=== PATIENT | female | born 1970 | race American Indian/Alaskan Native ===

== ENCOUNTER 2016-08-18 14:43 | Inpatient (IN) | payer MEDICAID ==
--- NOTE | 2016-08-18 15:02 | CT ---
PROCEDURE: CT HEAD WITHOUT CONTRAST. HISTORY: r/o stroke COMPARISON: None available. TECHNIQUE: Axial computed tomography images were obtained through the head/brain without intravenous contrast. Radiation dose: Total exam DLP = mGy-cm. FINDINGS: HEMORRHAGE: No intracranial hemorrhage. BRAIN: No mass effect or edema. Chronic microvascular changes are seen in the periventricular white matter and basal ganglia. Moderate atrophy greater than expected for age. No acute infarct or hemorrhage VENTRICLES: Unremarkable. No hydrocephalus. CALVARIUM: Unremarkable. PARANASAL SINUSES: Unremarkable as visualized. No significant inflammatory changes. MASTOID AIR CELLS: Unremarkable as visualized. No inflammatory changes. OTHER FINDINGS: None. IMPRESSION: Chronic microvascular changes and atrophy greater than expected for patient's age. No acute intracranial findings
[2016-08-18 15:05] VITALS: BMI 18.4
--- NOTE | 2016-08-18 15:08 | RAD ---
PROCEDURE: CHEST RADIOGRAPH, 1 VIEW HISTORY: alt ms COMPARISON: 09/05/2015 FINDINGS: LUNGS: Clear. PLEURA: No pneumothorax or pleural fluid seen. CARDIOVASCULAR: Normal. OSSEOUS STRUCTURES: No significant abnormalities. VISUALIZED UPPER ABDOMEN: Normal. OTHER FINDINGS: None. IMPRESSION: No active disease.
[2016-08-18 16:05] LABS: ADD MANUAL DIFF? NO
[2016-08-18 16:10] LABS: VENOUS BLOOD GAS BASE EXCESS 1.2 mmol/L (0.0-2.0); VENOUS BLOOD PH 7.41 (7.32-7.43)
[2016-08-18 16:13] LABS: BASO # 0.02 K/mm3 (0.0-2.0); BASO % 0.2 % (0.0-3.0); EOS # 0.1 (0.0-0.7); EOS % 0.9 % (1.5-5.0); GRAN # 4.48 (1.4-6.5); GRAN % 47.7 % (50.0-68.0); HEMATOCRIT 34.5 % (36.0-48.0); LYMPH # 4.1 (1.2-3.4); LYMPH % 43.7 % (22.0-35.0); MEAN CELL VOLUME 76.3 fL (80.0-105.0); MEAN CORPUSCULAR HEMOGLOBIN 25.4 pg (25.0-35.0); MEAN CORPUSCULAR HGB CONC 33.3 g/dl (31.0-37.0); MEAN PLATELET VOLUME 11.2 fl (7.0-11.0); MONO # 0.7 (0.1-0.6); MONO % 7.5 % (1.0-6.0); PLATELET COUNT 265 10^3/uL (120.0-450.0); RED CELL DISTRIBUTION WIDTH 15.3 % (11.5-14.5); WHITE BLOOD COUNT 9.4 10^3/ul (4.5-11.0)
[2016-08-18] MEDS ORDERED: Sodium Chloride 0.9% 1,000 ML IV STA ×2 (16:19→21:09)
[2016-08-18 16:20] LABS: ALB/GLOB RATIO 0.8 (1.1-1.8); ALKALINE PHOSPHATASE 59 U/L (38-133); ALT/SGPT 17 U/L (7-56); AST/SGOT 27 U/L (15-39); BILIRUBIN,TOTAL 0.4 mg/dL (0.2-1.3); BLOOD UREA NITROGEN 13 mg/dL (7-21); CALCIUM 9.8 mg/dL (8.4-10.5); CARBON DIOXIDE 26 mmol/L (21-33); CHLORIDE 102 mmol/L (98-107); CHOLESTEROL 160 mg/dL (130-200); GFR AFRICAN-AMERICAN > 60; GLUCOSE,RANDOM 81 mg/dL (70-110); INR 1.04 (0.93-1.08); LIPASE 83 U/L (23-300); MAGNESIUM 2.1 mg/dL (1.7-2.2); POTASSIUM 4.1 mmol/L (3.6-5.0); SODIUM 138 mmol/L (132-148); TOTAL PROTEIN 8.9 g/dL (5.8-8.3)
[2016-08-18 16:35] LABS: TROPONIN I < 0.01 ng/mL
[2016-08-18 17:29] LABS: URINE BILIRUBIN NEGATIVE (NEGATIVE); URINE BLOOD NEGATIVE (NEGATIVE); URINE GLUCOSE (UA) NEGATIVE (NEGATIVE); URINE KETONE NEGATIVE (NEGATIVE); URINE LEUKOCYTE ESTERASE NEGATIVE Leu/uL (NEGATIVE); URINE PROTEIN NEGATIVE mg/dL (<30 mg/dL); URINE UROBILINOGEN 0.2 E.U./dL (<1 E.U./dL)
[2016-08-18 17:32] LABS: URINE APPEARANCE CLEAR (CLEAR); URINE COLOR YELLOW (YELLOW)
[2016-08-18] MEDS ORDERED: Cefepime IV 2 gm in NS 100 ML IVPB STA (17:34)
[2016-08-18 18:38] LABS: URINE RBC 0 - 2 /hpf (0-2)
[2016-08-18 18:39] LABS: URINE AMORPHOUS SEDIMENT FEW; URINE BACTERIA MANY (NEG)
[2016-08-18] MEDS ORDERED: levETIRAcetam 500mg IVPB 100 ML IVPB STA (20:20)
--- NOTE | 2016-08-18 20:26 | ED PDOC ---
Arrival/HPI - General Chief Complaint: Weakness/Neurological Deficit Time Seen by Provider: 08/18/16 14:44 Historian: Patient - History of Present Illness Narrative History of Present Illness (Text): 08/18/16 20:22 46 y.o. female whose PMHx includes COPD, seizure d/o, multiple sclerosis, and CVA who is sent from [facility] according to EMS, the patient was somnolent and mildly lethargic in the morning but still verbal. There was no obvious neuro changes noted when she was last seen at 12:30 pm. At 1 pm, she was noted to be nonverbal with R side weakness. Per EMS, the patient appeared to be weak on her R side and aphasic initially though during transport she started becoming slightly more verbal. Patient on presentation is not speaking , so unable to discern additional history. Past Medical History - Infectious Disease Hx of Infectious Diseases: None - Tetanus Immunization Tetanus Immunization: Up to Date - Cardiac Hx Cardiac Disorders: No - Pulmonary Hx Asthma: Yes - Neurological HX Cerebrovascular Accident: Yes - HEENT Other/Comment: incomprehensible speech at times - Renal Hx Renal Disorder: No - Endocrine/Metabolic Hx Endocrine Disorders: No - Hematological/Oncological Hx Blood Disorders: No - Integumentary Hx Dermatological Disorder: No Other/Comment: 4cm x 2cm stage 2 left lower buttock wound bed red with small opening with rubber drain - Musculoskeletal/Rheumatological Hx Musculoskeletal Disorders: Yes (lower extremities contracted) - Gastrointestinal Hx Gastrointestinal Disorders: No - Genitourinary/Gynecological Hx Genitourinary Disorders: No - Psychiatric Hx Psychophysiologic Disorder: No Hx Substance Use: Yes (hx cocaine use) - Past Surgical History Past Surgical History: Unable to Obtain - Suicidal Assessment Feels Threatened In Home Enviroment: No Family/Social History Family/Social History: No Known Family HX Smoking Status: Unknown If Ever Smoked Hx Alcohol Use: No Hx Substance Use: Yes (hx cocaine use) Substance used: cocaine Hx Substance Use Treatment: No Allergies/Home Meds Allergies/Adverse Reactions: Allergies No Known Allergies Allergy (Unverified 08/18/16 15:06) Home Medications: Home Meds Medication Instructions Recorded Confirmed Levetiracetam [Keppra] 500 mg PO TID 05/26/15 08/18/16 Baclofen [Lioresal] 5 mg PO TID 09/05/15 08/18/16 Celecoxib [Celebrex] 100 mg PO BID 09/05/15 08/18/16 Famotidine [Pepcid] 20 mg PO DAILY 09/05/15 08/18/16 Interferon Beta-1A [Avonex] 30 mcg IM QWK 09/05/15 08/18/16 Sennosides [Senna] 8.6 mg PO HS PRN 09/05/15 08/18/16 Baclofen [Lioresal] 10 mg PO QID 08/18/16 08/18/16 Divalproex [Depakote DR(*BID*)] 125 mg PO BID 08/18/16 08/18/16 Review of Systems - Review of Systems Systems not reviewed;Unavailable: Altered Mental Status Physical Exam Vital Signs Temp Pulse Resp BP Pulse Ox 08/18/16 19:00 79 16 114/69 97 08/18/16 18:30 99.8 F H 74 16 108/84 100 08/18/16 17:27 77 18 112/77 100 08/18/16 15:07 91 H 16 123/86 100 08/18/16 15:00 102.2 F H Temperature: Febrile Blood Pressure: Normal Pulse: Regular Respiratory Rate: Normal Appearance: Positive for: Ill-Appearing Pain Distress: None Mental Status: Positive for: Lethargic (and nonverbal) Finger Stick Blood Glucose: 77 - Systems Exam Head: Present: Atraumatic, Normocephalic Pupils: Present: PERRL Conjunctiva: Present: Normal Mouth: Present: Moist Mucous Membranes Pharnyx: Present: Normal. No: ERYTHEMA Neck: Present: Normal Range of Motion Respiratory/Chest: Present: Clear to Auscultation, Good Air Exchange. No: Respiratory Distress, Accessory Muscle Use Cardiovascular: Present: Regular Rate and Rhythm, Normal S1, S2. No: Murmurs Abdomen: Present: Normal Bowel Sounds. No: Tenderness, Distention, Peritoneal Signs Back: Present: Normal Inspection Upper Extremity: Present: Normal Inspection. No: Cyanosis, Edema Lower Extremity: Present: Normal Inspection. No: Edema Neurological: Present: GCS=15, CN II-XII Intact, Speech Normal Skin: Present: Warm, Dry, Normal Color. No: Rashes Psychiatric: Present: Lethargic Medical Decision Making ED Course and Treatment: 08/18/16 20:28 Patient with noted history. Patient upon presentation is not speaking and lethargic though no obvious focal weakness is noted. She is also contracted in the lower extremities. Code stroke called upon presentation. CT with no acute findings. Case was discussed with Dr. Sandra Leon, who said given presentation, it may very likely be not a cva and to hold on tpa. Patient's temp is 102.2 rectally, so this is the likely cause. Lactic acid normal with hemodynamic stability, so no code sepsis. Patient slowly got hydrated in the ED and given antibiotics. Patient became much more verbal in the ED, likely back toward baseline. 08/18/16 20:[address] Leon, given presentation as likely sepsis with alt ms, as opposed to cva, will hold on tpa, despite elevated NIHSS. 08/18/16 20:[address] Reyez for admission to her service. 08/18/16 20:40 As d/w Dr. Reyez, will admit to tele, given history of seizures and possible sepsis at this time. - Lab Interpretations Lab Results: 08/18/16 15:50 08/18/16 15:50 Lab Results 08/18/16 18:00: Blood Type Confirm O NEGATIVE 08/18/16 17:00: Urine Color Yellow, Urine Appearance Clear, Urine pH 7.0, Ur Specific Bradshaw 1.010, Urine Protein Negative, Urine Glucose (UA) Negative, Urine Ketones Negative, Urine Blood Negative, Urine Nitrate Positive H, Urine Bilirubin Negative, Urine Urobilinogen 0.2, Ur Leukocyte Esterase Negative, Urine RBC 0 - 2, Urine WBC 1 - 3, Ur Epithelial Cells 4 - 5, Amorphous Sediment Few, Urine Bacteria Many, Urine Other Uyeast, Influenza Typ A,B (EIA) Negative for flu a/b 08/18/16 15:50: WBC 9.4 D, RBC 4.52, Hgb 11.5 L, Hct 34.5 L, MCV 76.3 L, MCH 25.4, MCHC 33.3, RDW 15.3 H, Plt Count 265, MPV 11.2 H, Gran % 47.7 L, Lymph % ( Auto) 43.7 H, Rains % (Auto) 7.5 H, Eos % (Auto) 0.9 L, Baso % (Auto) 0.2, Gran # 4.48, Lymph # 4.1 H, Rains # 0.7 H, Eos # 0.1, Baso # 0.02, PT 11.2, INR 1.04, APTT 24.0, pO2 107 H, VBG pH 7.41, VBG pCO2 41.0, VBG HCO3 26.0, VBG Total CO2 27.3, VBG O2 Sat (Calc) 98.4 H, VBG Base Excess 1.2, VBG Potassium 4.0, Glucose 79, Lactate 2.0, FiO2 21.0, Sodium 137.0, Potassium 4.1, Chloride 106.0, Carbon Dioxide 26, Anion Gap 14, BUN 13, Creatinine 0.5, Est GFR ( Amer) > 60, Est GFR (Non-Af Amer) > 60, Random Glucose 81, Calcium 9.8, Magnesium 2.1, Total Bilirubin 0.4, AST 27, ALT 17, Alkaline Phosphatase 59, Lactate Dehydrogenase 407, Total Creatine Kinase 30 L, Troponin I < 0.01, Total Protein 8.9 H, Albumin 3.9, Globulin 5.0, Albumin/Globulin Ratio 0.8 L, Triglycerides 104, Cholesterol 160, LDL Cholesterol Direct 84, HDL Cholesterol 42, Lipase 83, Venous Blood Potassium 4.0, Blood Type O NEGATIVE, Antibody Screen Negative, BBK History Checked No verified bt - RAD Interpretation Radiology Orders: 08/18/16 14:44 HEAD W/O (CODE STROKE) [CT] Stat 08/18/16 14:47 CHEST ONE VIEW [RAD] Stat - EKG Interpretation EKG Interpretation (Text): 08/18/16 20:35 NSR @ 87; no ST/T changes; normal axis; normal intervals. - Medication Orders Current Medication Orders: Levetiracetam (Keppra 500mg Ivpb) 100 mls @ 400 mls/hr IVPB STAT STA Stop: 08/18/16 20:34 Discontinued Medications Home Med (*Refrigerator Open) Confirm Administered Dose 1 unit XX .STK-MED ONE Stop: 08/18/16 16:25 Home Med (*Refrigerator Open) Confirm Administered Dose 1 unit XX .STK-MED ONE Stop: 08/18/16 16:26 Sodium Chloride (Sodium Chloride 0.9%) 1,000 mls @ 999 mls/hr IV .Q1H1M STA Stop: 08/18/16 17:19 Last Admin: 08/18/16 16:25 Dose: 999 MLS/HR eMAR Start Stop Document 08/18/16 16:25 [facility] (Rec: 08/18/16 17:16 [place] [id number]) Intravenous Solution Start Date 08/18/16 Start Time 16:25 End Date 08/18/16 End time 17:25 Total Infusion Time 60 Cefepime HCl (Maxipime 2gm) 100 mls @ 100 mls/hr IVPB STAT STA PRN Reason: Protocol Stop: 08/18/16 18:33 Last Admin: 08/18/16 18:10 Dose: 100 MLS/HR eMAR Start Stop Document 08/18/16 18:10 [facility] (Rec: 08/18/16 18:10 [place] [id number]) Intravenous Solution Start Date 08/18/16 Start Time 18:10 End Date 08/18/16 End time 19:10 Total Infusion Time 60 Vancomycin HCl 1 gm/ Sodium (Chloride) 250 mls @ 133.333 mls/hr IV STAT STA PRN Reason: Protocol Stop: 08/18/16 19:26 NIHSS Scale ([place]) Time Performed: 14:44 - How Severe is the Stoke Baseline Level of Consciousness: 1=Drowsy LOC to Questions: 2=Neither correct LOC to commands: 2=Neither correct Best Gaze: 0=Normal Visual: 0=No visual loss Facial: 0=Normal Motor Arm - Left: 0=No drift Motor Arm - Right: 0=No drift Motor Leg - Left: 0=No drift Motor Leg - Right: 0=No drift Limb Ataxia: 0=Absent Sensory: 0=Normal Best Language: 3=Mute Dysarthia: 2=Severe, near unintelligible or worse Extinction & Inattention (Neglect): 0=Normal, no object Score: 10 Risk Level: Mod Stroke Risk - Notes Notes: Score of 10 is likely due to altered ms, as opposed to focal neurologic event. Disposition/Present on Arrival - Present on Arrival Any Indicators Present on Arrival: No History of DVT/PE: No History of Uncontrolled Diabetes: No Urinary Catheter: No History of Decub. Ulcer: No History Surgical Site Infection Following: None - Disposition Have Diagnosis and Disposition been Completed?: Yes Diagnosis: Altered mental status, Urinary tract infection Disposition: HOSPITALIZED Disposition Time: 19:40 Patient Plan: Admission, Telemetry Patient Problems: Current Active Problems Problem Status Diagnosed Altered mental status Acute Urinary tract infection Acute Condition: SERIOUS
[2016-08-18 20:56] LABS: VENOUS BLOOD GAS BASE EXCESS 0.3 mmol/L (0.0-2.0); VENOUS BLOOD PH 7.46 (7.32-7.43)
--- NOTE | 2016-08-19 00:57 | CP.PCM.PCO ---
Physician Communication Note - Physician Communication Note Physician Communication Note: chart reviewed. Consult to be done tomorrow. On [place].
--- NOTE | 2016-08-19 07:20 | CARD ---
APPROVED REPORT EKG Measurement Heart [id number] ND [id number] <Conclusion> Sinus rhythm Normal ECG
[2016-08-19] MEDS: cefTRIAXone 1 gm 100 ML IVPB SCH (09:28)
[2016-08-19] MEDS ORDERED: DIVALPROEX 125 MG PO SCH (10:00)
[2016-08-19] MEDS ORDERED: CELECOXIB 100 MG PO SCH (10:00)
--- NOTE | 2016-08-19 14:23 | HP ---
CHIEF COMPLAINT: Feeling fatigue and tired. HISTORY OF PRESENT ILLNESS: The patient is a 46-year-old, my private patient, resident of [facility], has history of COPD, seizure, multiple sclerosis, CVA. Sent from [facility] according to nursing staff, patient was somnolent and mildly lethargic in the morning, but still verbal. There was change in the mental status. Later on that day, patient became nonverbal with right-sided weakness. The patient used to talk, not regular conversation, but was verbally. Now, she was aphasic when she came to the Emergency Room, but I saw patient in the knife cutter. He was again talking. No nausea, vomiting, diarrhea. No hematuria, no hematochezia. PAST MEDICAL HISTORY: Asthma, cerebrovascular accident, 4 cm to 2 cm to left lower buttock wound with small opening with the rubber drain. Extremities are contracted, especially lower. History of cocaine abuse, history of seizures, MS. FAMILY HISTORY: Father and mother, noncontributory. HABITS: Smoking, yes. Alcohol, no. Substance use, history of cocaine abuse, not actively using. ALLERGIES: The patient is not allergic with any medications. HOME MEDICATIONS: Keppra, baclofen, Celebrex, Pepcid, Depakote. REVIEW OF SYSTEMS: The patient seen and examined on the bedside, in telemetry, looks comfortable. No fever, no chills. No nausea, vomiting, diarrhea. No hematuria, no hematochezia. No swelling of the legs. No chest pain, no palpitation. PHYSICAL EXAMINATION: VITAL SIGNS: Temperature 98, pulse 81, blood pressure 106/66, respiratory rate 20. HEENT: Head normocephalic, atraumatic. Eyes: PERRLA. Extraocular muscles intact. Conjunctivae pink. Eyelids unremarkable. Nose patent. Mucous membranes moist. NECK: Supple. No carotid bruits, no JVD, no thyromegaly. CHEST: Bilaterally symmetrical. HEART: S1, S2 positive. LUNGS: Clear to auscultation. ABDOMEN: Soft. Bowel sounds positive. No organomegaly. EXTREMITIES: No edema, no cyanosis. NEUROLOGIC: The patient is awake, alert, moving all 4 extremities. No focal deficits. LABORATORIES: White blood cells 9.4, hemoglobin 11.5, hematocrit 34.5, platelets 265. Sodium 138, potassium 4.1, BUN 13, creatinine 0.5, glucose noted , AST 27, ALT 17. Venous potassium 5.3. ASSESSMENT AND PLAN: The patient is a 46-year-old lady with anemia, hyperkalemia, urinary tract infection. Urine nitrites are positive. Influenza type A and B is negative. Came with altered mental status, transient ischemic attack. Neurologist consult called. Dr. Emil Escoto from ER talked to Dr. Leon and then had discussion with me also. Due to urinary tract infection, we called ID consult with Dr. Wells, is on Rocephin. Waiting for the cultures. Altered mental status, multiple sclerosis, history of seizures. Dr. Leon is on the case. Sacral decubitus ulcer, history of cerebrovascular accident. We will give wound care. History of substance abuse. Gastrointestinal and deep venous thrombosis prophylaxis. Repeat labs. We will follow up. Naa Reyez MD cc: [id number] TT: 08/19/2016 14:22:25 en MTDD
--- NOTE | 2016-08-19 15:19 | CP.PCM.CON ---
<Montse Hodgson - Last Filed: 08/19/16 16:14> History of Present Illness - History of Present Illness History of Present Illness: PGY-1 note, surgery service 46 yo F [facility] [place] w/PMHx of COPD, seizure, multiple sclerosis, and CVA presents with healed lower left buttock wound of indeterminate age. Patient admitted yesterday for altered mental status and sepsis. Pt is verbally responsive but rarely appropriate, so is a poor historian. Hx as per HPI. PMHx: COPD, seizure, multiple sclerosis, and CVA Psxhx: unknown allergies: NKDA Medications: Keppra, baclofen, celebrex, pepcid, depakote PMD: Dr. Reyez Review of Systems - Review of Systems Systems not reviewed;Unavailable: Altered Mental Status Past Patient History - Infectious Disease Hx of Infectious Diseases: None - Tetanus Immunizations Tetanus Immunization: Up to Date - Past Social History Smoking Status: Never Smoked - CARDIAC Hx Cardiac Disorders: No - PULMONARY Hx Respiratory Disorders: No - NEUROLOGICAL Hx Neurological Disorder: Yes HX Cerebrovascular Accident: Yes Hx Seizures: Yes - HEENT Hx HEENT Problems: No - RENAL Hx Chronic Kidney Disease: No - ENDOCRINE/METABOLIC Hx Endocrine Disorders: No - HEMATOLOGICAL/ONCOLOGICAL Hx Blood Disorders: No - INTEGUMENTARY Hx Dermatological Problems: No - MUSCULOSKELETAL/RHEUMATOLOGICAL Hx Musculoskeletal Disorders: No Hx Falls: No - GASTROINTESTINAL Hx Gastrointestinal Disorders: No - GENITOURINARY/GYNECOLOGICAL Hx Genitourinary Disorders: Yes Hx Incontinence: Yes - PSYCHIATRIC Hx Psychophysiologic Disorder: No Hx Substance Use: Yes (cocaine) - SURGICAL HISTORY Hx Surgeries: No Meds Allergies/Adverse Reactions: Allergies Allergy/AdvReac Type Severity Reaction Status Date / Time No Known Allergies Allergy Unverified 08/18/16 15:06 - Medications Medications: Current Medications Baclofen (Lioresal) 5 mg PO TID [facility] Last Admin: 08/19/16 13:44 Dose: 5 mg Famotidine (Pepcid) 20 mg PO DAILY [facility] Last Admin: 08/19/16 09:28 Dose: 20 mg Ceftriaxone Sodium (Rocephin 1 Gram Ivpb) 100 mls @ 100 mls/hr IVPB DAILY [facility] PRN Reason: Protocol Last Admin: 08/19/16 09:28 Dose: 100 mls/hr Levetiracetam (Keppra) 500 mg PO TID [facility] Last Admin: 08/19/16 13:44 Dose: 500 mg Non-Formulary Medication (Celecoxib [Celebrex]) 100 mg PO BID [facility] Last Admin: 08/19/16 09:27 Dose: Not Given Non-Formulary Medication (Divalproex [Depakote Dr(*Bid*)]) 125 mg PO BID [facility] Last Admin: 08/19/16 09:27 Dose: Not Given Non-Formulary Medication (Interferon Beta-1a [Avonex]) 30 mcg IM QWK [facility] Sennosides (Senokot Tab) 8.6 mg PO HS PRN PRN Reason: Constipation Physical Exam - Head Exam Additional comments: recent closed incision of about 4 cm between orbits on face. No erythema/ induration/discharge - Eye Exam Eye Exam: EOMI, Normal appearance - ENT Exam ENT Exam: Normal Oropharynx - Respiratory Exam Respiratory Exam: NORMAL BREATHING PATTERN - Cardiovascular Exam Cardiovascular Exam: +S1, +S2. absent: Bradycardia - GI/Abdominal Exam GI & Abdominal Exam: Soft. absent: Tenderness - Rectal Exam Additional comments: completely closed and healed old scar of white discoloration on L buttock. - Exam External exam: absent: Erythema, Swelling Additional comments: Rosales inserted - Extremities Exam Extremities exam: Positive for: pedal pulses present. Negative for: pedal edema - Back Exam Back exam: absent: tenderness - Neurological Exam Additional comments: oriented to name only - Skin Skin Exam: Intact Additional comments: Lower body contracted Results - Vital Signs Recent Vital Signs: Last Vital Signs Temp 98 F 08/19/16 12:48 Pulse 81 08/19/16 12:48 Resp 20 08/19/16 12:48 BP 106/66 08/19/16 12:48 Pulse Ox 99 08/19/16 06:00 - Labs Result Diagrams: 08/18/16 15:50 08/18/16 15:50 Labs: Laboratory Results - last 24 hr 08/18/16 08/19/16 20:50 07:27 pO2 196 H VBG pH 7.46 H VBG pCO2 33.0 L VBG HCO3 23.5 VBG Total CO2 24.5 VBG O2 Sat (Calc) 99.4 H VBG Base Excess 0.3 VBG Potassium 5.3 H Sodium 136.0 Chloride 111.0 H Glucose 87 Lactate 0.9 FiO2 21.0 POC Glucose (mg/dL) 66 Venous Blood Potassium 5.3 H Assessment & Plan - Assessment and Plan (Free Text) Plan: PGY-1 note for surgery service: 46 yo F [facility] resident w/PMHx of healed sacral decubitus ulcer of L buttock admitted for AMS and sepsis plan: air mattress repositioning every q2h further recs as per Dr. Bertrand Hodgson, PGY-1 <Fercho Thurston - Last Filed: 08/20/16 10:37> Meds - Medications Medications: Current Medications Baclofen (Lioresal) 5 mg PO TID [facility] Last Admin: 08/20/16 10:20 Dose: 5 mg Divalproex Sodium (Depakote Sprinkles) 125 mg PO BID [facility] Last Admin: 08/20/16 10:20 Dose: 125 mg Famotidine (Pepcid) 20 mg PO DAILY [facility] Last Admin: 08/20/16 10:22 Dose: 20 mg Ceftriaxone Sodium (Rocephin 1 Gram Ivpb) 100 mls @ 100 mls/hr IVPB DAILY [facility] PRN Reason: Protocol Last Admin: 08/20/16 10:22 Dose: 100 mls/hr Levetiracetam (Keppra) 500 mg PO TID [facility] Last Admin: 08/20/16 10:22 Dose: 500 mg Non-Formulary Medication (Interferon Beta-1a [Avonex]) 30 mcg IM QWK [facility] Sennosides (Senokot Tab) 8.6 mg PO HS PRN PRN Reason: Constipation Results - Vital Signs Recent Vital Signs: Last Vital Signs Temp 98.3 F 08/20/16 06:00 Pulse 96 H 08/20/16 06:00 Resp 18 08/20/16 06:00 BP 97/60 L 08/20/16 06:00 Pulse Ox 98 08/20/16 06:00 - Labs Result Diagrams: 08/18/16 15:50 08/18/16 15:50 Labs: Laboratory Results - last 24 hr 08/19/16 08/19/16 08/19/16 07:27 16:59 21:22 POC Glucose (mg/dL) 66 86 75 08/20/16 07:28 POC Glucose (mg/dL) 81 Assessment & Plan - Assessment and Plan (Free Text) Assessment: Healed buttock wound-Prophylactic air matrress ordered Consultation done under my direct supervision Clovis Thurston MD FACS
--- NOTE | 2016-08-19 17:42 | CP.PCM.CON ---
History of Present Illness - History of Present Illness History of Present Illness: Infectious Disease Consultation: August 19, 2016 46 yo female sent from [facility] for lethargy and being more somnolent. She became nonverbal with increased right sided weakness. The last time I saw the patient was September 2015. The patient could express herself to a limited degree and had a low voice. She was not a reliable historian. The conversations with her in the past were not always appropriate in that her response could be unrelated to the questions asked of her. The patient today is giving very odd answers but I am unsure if this is her baseline versus worsening of her baseline. The patient did have a fever up to 102 F during this hospitalization. The patient had sacral decubiti which appears to well healed at this time. PMHx: COPD, CVA, Seizure disorder, Multiple Sclerosis, joint disease, sacral decubiti that is now healed, some degree expressive aphasia. PSHx: No major surgery to my knowledge. Allergies: NKDA Social Hx: History of Cocaine use, no EtOH. No tobacco use history as per patient. Active Medications Baclofen (Lioresal) 5 mg PO TID [facility] Last Admin: 08/19/16 13:44 Dose: 5 mg Famotidine (Pepcid) 20 mg PO DAILY [facility] Last Admin: 08/19/16 09:28 Dose: 20 mg Ceftriaxone Sodium (Rocephin 1 Gram Ivpb) 100 mls @ 100 mls/hr IVPB DAILY [facility] PRN Reason: Protocol Last Admin: 08/19/16 09:28 Dose: 100 mls/hr Levetiracetam (Keppra) 500 mg PO TID [facility] Last Admin: 08/19/16 13:44 Dose: 500 mg Non-Formulary Medication (Celecoxib [Celebrex]) 100 mg PO BID [facility] Last Admin: 08/19/16 09:27 Dose: Not Given Non-Formulary Medication (Divalproex [Depakote Dr(*Bid*)]) 125 mg PO BID [facility] Last Admin: 08/19/16 09:27 Dose: Not Given Non-Formulary Medication (Interferon Beta-1a [Avonex]) 30 mcg IM QWK [facility] Sennosides (Senokot Tab) 8.6 mg PO HS PRN PRN Reason: Constipation Family Hx: none given ROS: Patient with lethargy and somnolence. Fevers in hospital. No reported chills, nausea, vomiting, or diarrhea. No reported headaches or dizziness. No chest Pain, no abdominal pain, no melena, no hematuria. No vision loss, hearing loss , or loss of consciousness. No hematochezia or hematemesis. Past Patient History - Infectious Disease Hx of Infectious Diseases: None - Tetanus Immunizations Tetanus Immunization: Up to Date - Past Social History Smoking Status: Never Smoked - CARDIAC Hx Cardiac Disorders: No - PULMONARY Hx Respiratory Disorders: No - NEUROLOGICAL Hx Neurological Disorder: Yes HX Cerebrovascular Accident: Yes Hx Seizures: Yes - HEENT Hx HEENT Problems: No - RENAL Hx Chronic Kidney Disease: No - ENDOCRINE/METABOLIC Hx Endocrine Disorders: No - HEMATOLOGICAL/ONCOLOGICAL Hx Blood Disorders: No - INTEGUMENTARY Hx Dermatological Problems: No - MUSCULOSKELETAL/RHEUMATOLOGICAL Hx Musculoskeletal Disorders: No Hx Falls: No - GASTROINTESTINAL Hx Gastrointestinal Disorders: No - GENITOURINARY/GYNECOLOGICAL Hx Genitourinary Disorders: Yes Hx Incontinence: Yes - PSYCHIATRIC Hx Psychophysiologic Disorder: No Hx Substance Use: Yes (cocaine) - SURGICAL HISTORY Hx Surgeries: No Meds Allergies/Adverse Reactions: Allergies Allergy/AdvReac Type Severity Reaction Status Date / Time No Known Allergies Allergy Unverified 08/18/16 15:06 - Medications Medications: Current Medications Baclofen (Lioresal) 5 mg PO TID [facility] Last Admin: 08/19/16 13:44 Dose: 5 mg Famotidine (Pepcid) 20 mg PO DAILY [facility] Last Admin: 08/19/16 09:28 Dose: 20 mg Ceftriaxone Sodium (Rocephin 1 Gram Ivpb) 100 mls @ 100 mls/hr IVPB DAILY [facility] PRN Reason: Protocol Last Admin: 08/19/16 09:28 Dose: 100 mls/hr Levetiracetam (Keppra) 500 mg PO TID [facility] Last Admin: 08/19/16 13:44 Dose: 500 mg Non-Formulary Medication (Celecoxib [Celebrex]) 100 mg PO BID [facility] Last Admin: 08/19/16 09:27 Dose: Not Given Non-Formulary Medication (Divalproex [Depakote Dr(*Bid*)]) 125 mg PO BID [facility] Last Admin: 08/19/16 09:27 Dose: Not Given Non-Formulary Medication (Interferon Beta-1a [Avonex]) 30 mcg IM QWK [facility] Sennosides (Senokot Tab) 8.6 mg PO HS PRN PRN Reason: Constipation Physical Exam - Constitutional Appears: Non-toxic, No Acute Distress, Chronically Ill Additional comments: Repeating phrases. Answer to questions are inappropriate (when asked "Do you have pain?" she answers "Thank you for lunch") - Head Exam Head Exam: ATRAUMATIC, NORMOCEPHALIC - Eye Exam Eye Exam: EOMI, PERRL Pupil Exam: NORMAL ACCOMODATION, PERRL - ENT Exam ENT Exam: Mucous Membranes Moist, Normal External Ear Exam, TM's Normal Bilaterally - Neck Exam Neck exam: Positive for: Full Rom, Normal Inspection - Respiratory Exam Respiratory Exam: Clear to Auscultation Bilateral, NORMAL BREATHING PATTERN. absent: Rales, Rhonchi, Wheezes - Cardiovascular Exam Cardiovascular Exam: REGULAR RHYTHM, RRR, +S1, +S2 - GI/Abdominal Exam GI & Abdominal Exam: Normal Bowel Sounds, Soft. absent: Distended, Tenderness - Extremities Exam Additional comments: contracted in lower extremities. scars from healed sacral decubiti. - Neurological Exam Neurological exam: Alert Additional comments: unable to test CN II-XII. AAO x 0-1. Inappropriate verbal response. - Psychiatric Exam Psychiatric exam: Normal Affect, Normal Mood - Skin Additional comments: no skin breaks. Results - Vital Signs Recent Vital Signs: Last Vital Signs Temp 98 F 08/19/16 12:48 Pulse 81 08/19/16 12:48 Resp 20 08/19/16 12:48 BP 106/66 08/19/16 12:48 Pulse Ox 99 08/19/16 06:00 - Labs Result Diagrams: 08/18/16 15:50 08/18/16 15:50 Labs: Laboratory Results - last 24 hr 08/18/16 08/19/16 20:50 07:27 pO2 196 H VBG pH 7.46 H VBG pCO2 33.0 L VBG HCO3 23.5 VBG Total CO2 24.5 VBG O2 Sat (Calc) 99.4 H VBG Base Excess 0.3 VBG Potassium 5.3 H Sodium 136.0 Chloride 111.0 H Glucose 87 Lactate 0.9 FiO2 21.0 POC Glucose (mg/dL) 66 Venous Blood Potassium 5.3 H Assessment & Plan - Assessment and Plan (Free Text) Assessment: 46 yo female with altered mental status worse than her usual at [facility]. The patient is awake but answers questions inappropriately. The patient was found to have a UTI with gram negative rods. The patient is on ceftriaxone currently. The patient had a fever up 102.2 F on admission. Awaiting culture results from urine. Continuing with Rocephin for now. Supportive care. Thank you for allowing me to participate in the care of the patient, we will follow with you.
[2016-08-19] MEDS ORDERED: Divalproex 125 mg EC Sprinkle Cap PO SCH (17:55)
[2016-08-19] MEDS: Divalproex 125 mg EC Sprinkle Cap PO SCH (18:21)
--- NOTE | 2016-08-19 19:21 | CON ---
DATE: 08/19/2016 HISTORY OF PRESENT ILLNESS: This is a 46-year-old female with past medical history of asthma and mult iple sclerosis. The patient is a resident of a custodial with COPD, seizure, multiple sclerosis a nd CVA. The patient was lethargic and was sent to hospital. ALLERGIES: Not allergic to any medications. REVIEW OF SYSTEMS: A 10-point review of systems was negative except unable to move the legs and alte red mental status. PHYSICAL EXAMINATION: HEENT: Normocephalic, atraumatic. NECK: Supple. NEUROLOGIC: Awake, oriented to self, not to the place. Cranial nerves II through XII were tested. Pupils reactive. EOMs intact. Visual maldonado full. No facial asymmetry. Tongue midline. Spontaneo us movement of both upper extremities noted. No facial asymmetry. Weakness of both the legs was not ed and contracted. IMPRESSION: Encephalopathy, could be toxic metabolic. Workup in progress. PLAN: Continue present management. We will follow up. Roney Leon MD cc: [id number] TT: 08/19/2016 19:20:17 Confirmation # [id number] Dictation # [id number] connor
[2016-08-20] MEDS: Divalproex 125 mg EC Sprinkle Cap PO SCH ×2 (10:20→17:46)
[2016-08-20] MEDS: cefTRIAXone 1 gm 100 ML IVPB SCH (10:22)
--- NOTE | 2016-08-20 15:27 | CP.PCM.PN ---
Subjective - Date & Time of Evaluation Date of Evaluation: 08/20/16 Time of Evaluation: 14:00 - Subjective Subjective: Infectious Disease Follow Up: August 20, 2016 46 yo female sent from [facility] [place] for lethargy and being more somnolent. She became nonverbal with increased right sided weakness. The last time I saw the patient was September 2015. The patient could express herself to a limited degree and had a low voice. She was not a reliable historian. The conversations with her in the past were not always appropriate in that her response could be unrelated to the questions asked of her. The patient today is giving very odd answers but I am unsure if this is her baseline versus worsening of her baseline. The patient did have a fever up to 102 F during this hospitalization. The patient had sacral decubiti which appears to well healed at this time. E. coli in urine cultures. Objective - Vital Signs/Intake and Output Vital Signs (last 24 hours): Temp Pulse Resp BP Pulse Ox 98.7 F 99 H 16 97/57 L 98 08/20/16 12:00 08/20/16 12:00 08/20/16 12:00 08/20/16 12:00 08/20/16 06:00 Intake and Output: 08/20/16 08/20/16 06:59 18:59 Intake Total 340 0 Output Total 625 400 Balance -285 -400 - Medications Medications: Current Medications Baclofen (Lioresal) 5 mg PO TID [facility] Last Admin: 08/20/16 14:31 Dose: 5 mg Divalproex Sodium (Depakote Sprinkles) 125 mg PO BID [facility] Last Admin: 08/20/16 10:20 Dose: 125 mg Famotidine (Pepcid) 20 mg PO DAILY [facility] Last Admin: 08/20/16 10:22 Dose: 20 mg Ceftriaxone Sodium (Rocephin 1 Gram Ivpb) 100 mls @ 100 mls/hr IVPB DAILY [facility] PRN Reason: Protocol Last Admin: 08/20/16 10:22 Dose: 100 mls/hr Levetiracetam (Keppra) 500 mg PO TID [facility] Last Admin: 08/20/16 14:31 Dose: 500 mg Non-Formulary Medication (Interferon Beta-1a [Avonex]) 30 mcg IM QWK [facility] Sennosides (Senokot Tab) 8.6 mg PO HS PRN PRN Reason: Constipation - Labs Labs: PT 11.2 Seconds (9.9-11.8) 08/18/16 15:50 INR 1.04 (0.93-1.08) 08/18/16 15:50 APTT 24.0 Seconds (23.7-30.8) 08/18/16 15:50 - Constitutional Appears: Non-toxic, No Acute Distress, Chronically Ill - Head Exam Head Exam: ATRAUMATIC, NORMOCEPHALIC - Eye Exam Eye Exam: EOMI, PERRL Pupil Exam: NORMAL ACCOMODATION, PERRL - ENT Exam ENT Exam: Mucous Membranes Moist, Normal External Ear Exam, TM's Normal Bilaterally - Neck Exam Neck Exam: Full ROM, Normal Inspection - Respiratory Exam Respiratory Exam: Clear to Ausculation Bilateral, Wheezes. absent: Rales, Rhonchi - Cardiovascular Exam Cardiovascular Exam: REGULAR RHYTHM, RRR, +S1, +S2 - GI/Abdominal Exam GI & Abdominal Exam: Soft, Tenderness, Normal Bowel Sounds. absent: Distended - Extremities Exam Additional comments: contracted in lower extremities. scars from healed sacral decubiti. - Neurological Exam Neurological Exam: Awake Additional comments: unable to test CN II-XII. AAO x 0-1. Inappropriate verbal response. - Psychiatric Exam Psychiatric exam: Normal Affect, Normal Mood - Skin Additional comments: no skin breaks. Assessment and Plan - Assessment and Plan (Free Text) Assessment: 46 yo female with altered mental status worse than her usual at [facility]. The patient is awake but answers questions inappropriately. The patient was found to have a UTI with gram negative rods. The patient is on ceftriaxone currently. The patient had a fever up 102.2 F on admission. Urine cultures with E. coli sensitive to Rocephin. Continuing with Rocephin for now. Supportive care. Thank you for allowing me to participate in the care of the patient, we will follow with you.
--- NOTE | 2016-08-20 22:30 | PN ---
DATE: 08/20/2016 SUBJECTIVE: The patient seen and examined on the bedside, looks comfortable. No fever, no chills, n o nausea, vomiting, or diarrhea. No hematuria or hematochezia. No headache, no dizziness. PHYSICAL EXAMINATION: VITAL SIGNS: Temperature is 98.7, pulse 99, blood pressure 97/57, and respiratory rate 15. HEENT: Head normocephalic, atraumatic. Eyes PERRLA. EOMs intact. Conjunctivae pink. Eyelids unre markable. Nose patent. Mucous membranes moist. NECK: Supple. No carotid bruit, JVD, or thyromegaly. CHEST: Bilaterally symmetrical. HEART: S1, S2 positive. LUNGS: Clear to auscultation. ABDOMEN: Soft. Bowel sounds present. No organomegaly. EXTREMITIES: No edema, no cyanosis. MEDICATIONS: Depakote, interferon, Keppra, baclofen, Pepcid, Rocephin, Senokot. LABORATORY DATA: White blood cells 9.4, hemoglobin 11.5, hematocrit 34.5, platelets 265. Glucose 87 , 88, 81, 75. ASSESSMENT AND PLAN: The patient is a 46-year-old lady with anemia, urinary tract infection, multipl e sclerosis, chronic obstructive pulmonary disease. The patient was seen by Dr. Wells, Infectious Disea se. She came in with altered mental status, then had the usual mini-mental status report. Now patie nt is getting back to baseline. The patient had a urinary tract infection with gram-negative rods. The patient is on Rocephin. Had a fever of 101.2 on admission. Urine culture shows E. coli, sensiti ve to Rocephin. Continue with the Rocephin, now, supportive care. Seen by Dr. Carolyn Sim for ence phalopathy, toxic metabolic syndrome, multiple sclerosis, history of seizure, cerebrovascular acciden t, chronic obstructive pulmonary disease. Gastrointestinal and deep venous thrombosis prophylaxis. Repeat labs. We will follow up. Naa Reyez MD cc: [id number] TT: 08/20/2016 22:29:37 Confirmation # [id number] Dictation # [id number]
--- NOTE | 2016-08-21 08:39 | CP.PCM.PN ---
Subjective - Date & Time of Evaluation Date of Evaluation: 08/21/16 Time of Evaluation: 08:36 - Subjective Subjective: SURGERY CONSULT NOTE FOR DR. ARANA 46F seen and examined at bedside. Patient resting comfortable. NAEON. Objective - Vital Signs/Intake and Output Vital Signs (last 24 hours): Temp Pulse Resp BP Pulse Ox 99 F 107 H 18 97/68 L 99 08/21/16 07:58 08/21/16 07:58 08/21/16 07:58 08/21/16 07:58 08/21/16 07:58 Intake and Output: 08/21/16 08/21/16 06:59 18:59 Intake Total 240 Output Total 650 Balance -410 - Medications Medications: Current Medications Baclofen (Lioresal) 5 mg PO TID [facility] Last Admin: 08/20/16 17:46 Dose: 5 mg Divalproex Sodium (Depakote Sprinkles) 125 mg PO BID [facility] Last Admin: 08/20/16 17:46 Dose: 125 mg Famotidine (Pepcid) 20 mg PO DAILY [facility] Last Admin: 08/20/16 10:22 Dose: 20 mg Ceftriaxone Sodium (Rocephin 1 Gram Ivpb) 100 mls @ 100 mls/hr IVPB DAILY [facility] PRN Reason: Protocol Last Admin: 08/20/16 10:22 Dose: 100 mls/hr Levetiracetam (Keppra) 500 mg PO TID [facility] Last Admin: 08/20/16 17:46 Dose: 500 mg Non-Formulary Medication (Interferon Beta-1a [Avonex]) 30 mcg IM QWK [facility] Sennosides (Senokot Tab) 8.6 mg PO PRN PRN Reason: Constipation - Labs Labs: PT 11.2 Seconds (9.9-11.8) 08/18/16 15:50 INR 1.04 (0.93-1.08) 08/18/16 15:50 APTT 24.0 Seconds (23.7-30.8) 08/18/16 15:50 - Constitutional Appears: Non-toxic, No Acute Distress - Respiratory Exam Respiratory Exam: Clear to Ausculation Bilateral, NORMAL BREATHING PATTERN - Cardiovascular Exam Cardiovascular Exam: REGULAR RHYTHM, +S1, +S2 - GI/Abdominal Exam GI & Abdominal Exam: Soft. absent: Distended, Firm, Guarding, Rigid, Tenderness , Rebound - Extremities Exam Additional comments: chronic contractures - Neurological Exam Neurological Exam: Alert, Awake - Skin Skin Exam: Dry, Intact, Normal Color, Warm Additional comments: no notable wounds
[2016-08-21] MEDS: Divalproex 125 mg EC Sprinkle Cap PO SCH ×2 (10:39→17:53)
[2016-08-21] MEDS: cefTRIAXone 1 gm 100 ML IVPB SCH (10:40)
--- NOTE | 2016-08-21 16:32 | CP.PCM.PN ---
Subjective - Date & Time of Evaluation Date of Evaluation: 08/21/16 Time of Evaluation: 14:15 - Subjective Subjective: Infectious Disease Follow Up: August 21, 2016 46 yo female sent from [facility] [place] for lethargy and being more somnolent. She became nonverbal with increased right sided weakness. The last time I saw the patient was September 2015. The patient could express herself to a limited degree and had a low voice. She was not a reliable historian. The conversations with her in the past were not always appropriate in that her response could be unrelated to the questions asked of her. The patient today is giving very odd answers but I am unsure if this is her baseline versus worsening of her baseline. The patient did have a fever up to 102 F during this hospitalization. The patient had sacral decubiti which appears to well healed at this time. E. coli in urine cultures. It is sensitive to Ceftriaxone. Supportive care. Objective - Vital Signs/Intake and Output Vital Signs (last 24 hours): Temp Pulse Resp BP Pulse Ox 99 F 107 H 18 97/68 L 99 08/21/16 07:58 08/21/16 07:58 08/21/16 07:58 08/21/16 07:58 08/21/16 07:58 Intake and Output: 08/21/16 08/21/16 06:59 18:59 Intake Total 240 960 Output Total 650 1200 Balance -410 -240 - Medications Medications: Current Medications Baclofen (Lioresal) 5 mg PO TID [facility] Last Admin: 08/21/16 13:43 Dose: 5 mg Divalproex Sodium (Depakote Sprinkles) 125 mg PO BID [facility] Last Admin: 08/21/16 10:39 Dose: 125 mg Famotidine (Pepcid) 20 mg PO DAILY [facility] Last Admin: 08/21/16 10:39 Dose: 20 mg Ceftriaxone Sodium (Rocephin 1 Gram Ivpb) 100 mls @ 100 mls/hr IVPB DAILY [facility] PRN Reason: Protocol Last Admin: 08/21/16 10:40 Dose: 100 mls/hr Levetiracetam (Keppra) 500 mg PO TID [facility] Last Admin: 08/21/16 13:41 Dose: 500 mg Non-Formulary Medication (Interferon Beta-1a [Avonex]) 30 mcg IM QWK [facility] Sennosides (Senokot Tab) 8.6 mg PO HS PRN PRN Reason: Constipation - Labs Labs: PT 11.2 Seconds (9.9-11.8) 08/18/16 15:50 INR 1.04 (0.93-1.08) 08/18/16 15:50 APTT 24.0 Seconds (23.7-30.8) 08/18/16 15:50 - Constitutional Appears: Non-toxic, No Acute Distress, Chronically Ill - Head Exam Head Exam: ATRAUMATIC, NORMOCEPHALIC - Eye Exam Eye Exam: EOMI, PERRL Pupil Exam: NORMAL ACCOMODATION, PERRL - ENT Exam ENT Exam: Mucous Membranes Moist, Normal External Ear Exam, TM's Normal Bilaterally - Neck Exam Neck Exam: Full ROM, Normal Inspection - Respiratory Exam Respiratory Exam: Clear to Ausculation Bilateral, NORMAL BREATHING PATTERN. absent: Rales, Rhonchi, Wheezes - Cardiovascular Exam Cardiovascular Exam: REGULAR RHYTHM, RRR, +S1, +S2 - GI/Abdominal Exam GI & Abdominal Exam: Soft, Normal Bowel Sounds. absent: Distended, Tenderness - Extremities Exam Additional comments: contracted in lower extremities. scars from healed sacral decubiti. - Neurological Exam Neurological Exam: Alert, Awake Additional comments: unable to test CN II-XII. AAO x 1. Inappropriate verbal response much of the time. - Skin Additional comments: no skin breaks. Assessment and Plan - Assessment and Plan (Free Text) Assessment: 46 yo female with altered mental status worse than her usual at [facility]. The patient is awake but answers questions inappropriately. The patient was found to have a UTI with gram negative rods that likely led to septicemia. The patient is on ceftriaxone currently. The patient had a fever up 102.2 F on admission. Urine cultures with E. coli sensitive to Rocephin. Continuing with Rocephin for now. Complete up to 10 day course of therapy. Supportive care. Thank you for allowing me to participate in the care of the patient, we will follow with you.
--- NOTE | 2016-08-22 02:39 | PN ---
DATE: 08/21/2016 SUBJECTIVE: The patient is seen and examined on the bedside. No big change in the status. Looks comfortable. No nausea, vomiting, or diarrhea. No hematuria or hematochezia. No headache, no dizziness. No fever, no chills. PHYSICAL EXAMINATION: VITAL SIGNS: Temperature 98.7, pulse 106, blood pressure 120/80 , respiratory rate 18. HEAD: Normocephalic, atraumatic. EYES: PERRLA. Extraocular muscles intact. Conjunctivae clear. Nose patent. Mucous membranes moist. NECK: Supple. No carotid bruit. No JVD or thyromegaly. CHEST: Bilaterally symmetrical. HEART: S1, S2 positive. LUNGS: Clear to auscultation. ABDOMEN: Soft. Bowel sounds present. No organomegaly. EXTREMITIES: Upper extremities no edema, no cyanosis. Lower extremities has contractures. NEUROLOGIC: The patient is awake and alert. MEDICATIONS: Depakote, Interferon beta 1a, Keppra, baclofen, Pepcid, Rocephin, Senokot. LABORATORY DATA: We do not have recent labs today, but I reviewed old labs. Glucose is 98, 102, 97, 68, 75, 87. ASSESSMENT AND PLAN: The patient is a 46-year-old female with history of multiple sclerosis, seizures, lower extremity contractures, altered mental status, has urinary tract infection with gram-negative rods that lead to septicemia. The patient is on ceftriaxone currently. The patient has fever of 101.2 on admission, urine culture with Escherichia coli is sensitive to Rocephin. Continue with Rocephin now and need to complete 10 days of course. Gastrointestinal and deep venous thrombosis prophylaxis. I appreciated Dr. Wells' s input. The patient is seen by Dr. Leon also. We will follow up. Naa Reyez MD cc: [id number] TT: 08/22/2016 02:38:20 Confirmation # [id number] Dictation # [id number] [id number]
[2016-08-22] MEDS: Divalproex 125 mg EC Sprinkle Cap PO SCH ×2 (10:25→17:49)
[2016-08-22] MEDS: cefTRIAXone 1 gm 100 ML IVPB SCH (10:26)
--- NOTE | 2016-08-22 16:14 | CP.PCM.PN ---
Subjective - Date & Time of Evaluation Date of Evaluation: 08/22/16 Time of Evaluation: 14:00 - Subjective Subjective: Infectious Disease Follow Up: August 22, 2016 46 yo female sent from [facility] for lethargy and being more somnolent. She became nonverbal with increased right sided weakness. The last time I saw the patient was September 2015. The patient could express herself to a limited degree and had a low voice. She was not a reliable historian. The conversations with her in the past were not always appropriate in that her response could be unrelated to the questions asked of her. The patient today is giving very odd answers but I am unsure if this is her baseline versus worsening of her baseline. The patient did have a fever up to 102 F during this hospitalization. The patient had sacral decubiti which appears to well healed at this time. E. coli in urine cultures. It is sensitive to Ceftriaxone. Supportive care. Objective - Vital Signs/Intake and Output Vital Signs (last 24 hours): Temp Pulse Resp BP Pulse Ox 98 F 97 H 18 111/73 97 08/22/16 08:00 08/22/16 08:00 08/22/16 08:00 08/22/16 08:00 08/22/16 08:00 Intake and Output: 08/22/16 08/22/16 06:59 18:59 Intake Total 660 600 Output Total 510 850 Balance 150 -250 - Medications Medications: Current Medications Baclofen (Lioresal) 5 mg PO TID [facility] Last Admin: 08/22/16 15:19 Dose: 5 mg Divalproex Sodium (Depakote Sprinkles) 125 mg PO BID [facility] Last Admin: 08/22/16 10:25 Dose: 125 mg Famotidine (Pepcid) 20 mg PO DAILY [facility] Last Admin: 08/22/16 10:25 Dose: 20 mg Ceftriaxone Sodium (Rocephin 1 Gram Ivpb) 100 mls @ 100 mls/hr IVPB DAILY [facility] PRN Reason: Protocol Last Admin: 08/22/16 10:26 Dose: 100 mls/hr Levetiracetam (Keppra) 500 mg PO TID [facility] Last Admin: 08/22/16 15:19 Dose: 500 mg Non-Formulary Medication (Interferon Beta-1a [Avonex]) 30 mcg IM QWK [facility] Sennosides (Senokot Tab) 8.6 mg PO HS PRN PRN Reason: Constipation - Labs Labs: PT 11.2 Seconds (9.9-11.8) 08/18/16 15:50 INR 1.04 (0.93-1.08) 08/18/16 15:50 APTT 24.0 Seconds (23.7-30.8) 08/18/16 15:50 - Constitutional Appears: Non-toxic, No Acute Distress, Chronically Ill - Head Exam Head Exam: ATRAUMATIC, NORMOCEPHALIC - Eye Exam Eye Exam: EOMI, PERRL Pupil Exam: NORMAL ACCOMODATION, PERRL - ENT Exam ENT Exam: Mucous Membranes Moist, Normal External Ear Exam, TM's Normal Bilaterally - Neck Exam Neck Exam: Full ROM, Normal Inspection - Respiratory Exam Respiratory Exam: Clear to Ausculation Bilateral, NORMAL BREATHING PATTERN. absent: Rales, Rhonchi, Wheezes - Cardiovascular Exam Cardiovascular Exam: REGULAR RHYTHM, RRR, +S1, +S2 - GI/Abdominal Exam GI & Abdominal Exam: Soft, Normal Bowel Sounds. absent: Distended, Tenderness - Extremities Exam Additional comments: contracted in lower extremities. scars from healed sacral decubiti. - Neurological Exam Additional comments: CN II-XII mostly intact. AAO x 1-2. Appropriate verbal response much of the time with repeating of the answer often. - Skin Additional comments: no skin breaks. Assessment and Plan - Assessment and Plan (Free Text) Assessment: 46 yo female with altered mental status worse than her usual at [facility]. The patient is awake but answers questions inappropriately. The patient was found to have a UTI with gram negative rods that likely led to septicemia. The patient is on ceftriaxone currently. The patient had a fever up 102.2 F on admission. Urine cultures with E. coli sensitive to Rocephin. Continuing with Rocephin for now. Complete up to 10 day course of therapy. If afebrile and patient is physically close to baseline , can consider d/c back to nursing facility with oral Keflex 500 mg TID to complete antibiotic therapy. Supportive care. Thank you for allowing me to participate in the care of the patient, we will follow with you.
--- NOTE | 2016-08-23 10:22 | PN ---
DATE: 08/22/2016 SUBJECTIVE: The patient is seen and examined on the bedside. No change in the status. Complete examination of the body is done. There are no decubitus ulcers on the back. She has history of decubitus ulcer on the back, almost completely healed. No nausea, vomiting, or diarrhea. No fever, no chills. No hematuria or hematochezia. PHYSICAL EXAMINATION: VITAL SIGNS: Temperature 98, pulse 109, blood pressure 100/71, respiratory rate 18. HEENT: Head normocephalic, atraumatic. Eyes, PERRLA. Extraocular muscles intact. Conjunctivae pink. Eyelids unremarkable. Nose patent. Mucous membranes moist. NECK: Supple. No carotid bruit, JVD or thyromegaly. CHEST: Bilaterally symmetrical. HEART: S1, S2 positive. LUNGS: Clear to auscultation. ABDOMEN: Soft. Bowel sounds present. No organomegaly. EXTREMITIES: No edema, no cyanosis. Lower extremities have contractures. NEUROLOGIC: The patient is awake, alert. MEDICATIONS: Depakote, Avonex, Keppra, baclofen, Pepcid, Rocephin, Senekot. LABORATORY DATA: White blood cells 9.4, hemoglobin 11.5, hematocrit 34.5, platelets 265, glucose 85, 79, 85, 98, 102, 97. ASSESSMENT AND PLAN: The patient is a 46-year-old lady who came with altered mental status, resident of [facility], has urinary tract infection with gram-negative rods that likely led to the septicemia. The patient is on ceftriaxone currently. The patient came with fever of 102.2. Plan is to complete 10-day course of Rocephin. If afebrile, patient is physically close to baseline, can consider discharging back to nursing facility with oral Keflex t.i.d. to complete antibiotic therapy. Seen by Dr. Leon. The patient has a history of multiple sclerosis, seizures, history of status epilepticus, contractures of the lower extremities, history of decubitus ulcer in the sacral area. Gastrointestinal and deep vein thrombosis prophylaxis. Continue Depakote for seizures, Avonex for multiple sclerosis, Keppra for seizures, Baclofen muscle relaxant, Pepcid for gastrointestinal prophylaxis, Rocephin for urinary tract infection, Senekot for constipation. We will follow up. Naa Reyez MD cc: [id number] TT: 08/23/2016 10:22:02 Confirmation # [id number] Dictation # [id number] rn BECKA
[2016-08-23] MEDS: cefTRIAXone 1 gm 100 ML IVPB SCH (10:41)
[2016-08-23] MEDS: Divalproex 125 mg EC Sprinkle Cap PO SCH ×2 (10:43→18:18)
--- NOTE | 2016-08-23 18:18 | CP.PCM.PN ---
Subjective - Date & Time of Evaluation Date of Evaluation: 08/23/16 Time of Evaluation: 17:00 - Subjective Subjective: Infectious Disease Follow Up: August 23, 2016 46 yo female sent from [facility] [place] for lethargy and being more somnolent. She became nonverbal with increased right sided weakness. The last time I saw the patient was September 2015. The patient could express herself to a limited degree and had a low voice. She was not a reliable historian. The conversations with her in the past were not always appropriate in that her response could be unrelated to the questions asked of her. The patient today is giving very odd answers but I am unsure if this is her baseline versus worsening of her baseline. The patient did have a fever up to 102 F during this hospitalization. The patient had sacral decubiti which appears to well healed at this time. E. coli in urine cultures. It is sensitive to Ceftriaxone. Supportive care. Multiple urine cultures positive for E. Coli. Afebrile for past 24 horus. Objective - Vital Signs/Intake and Output Vital Signs (last 24 hours): Temp Pulse Resp BP Pulse Ox 98.5 F 112 H 18 116/94 H 98 08/23/16 16:00 08/23/16 16:00 08/23/16 16:00 08/23/16 16:00 08/23/16 16:00 Intake and Output: 08/23/16 08/23/16 06:59 18:59 Intake Total 540 600 Output Total 800 200 Balance -260 400 - Medications Medications: Current Medications Baclofen (Lioresal) 5 mg PO TID [facility] Last Admin: 08/23/16 15:24 Dose: 5 mg Divalproex Sodium (Depakote Sprinkles) 125 mg PO BID [facility] Last Admin: 08/23/16 10:43 Dose: 125 mg Famotidine (Pepcid) 20 mg PO DAILY [facility] Last Admin: 08/23/16 10:41 Dose: 20 mg Ceftriaxone Sodium (Rocephin 1 Gram Ivpb) 100 mls @ 100 mls/hr IVPB DAILY [facility] PRN Reason: Protocol Last Admin: 08/23/16 10:41 Dose: 100 mls/hr Levetiracetam (Keppra) 500 mg PO TID [facility] Last Admin: 08/23/16 15:24 Dose: 500 mg Non-Formulary Medication (Interferon Beta-1a [Avonex]) 30 mcg IM QWK [facility] Sennosides (Senokot Tab) 8.6 mg PO HS PRN PRN Reason: Constipation - Labs Labs: PT 11.2 Seconds (9.9-11.8) 08/18/16 15:50 INR 1.04 (0.93-1.08) 08/18/16 15:50 APTT 24.0 Seconds (23.7-30.8) 08/18/16 15:50 - Constitutional Appears: Non-toxic, No Acute Distress, Chronically Ill - Head Exam Head Exam: ATRAUMATIC, NORMOCEPHALIC - Eye Exam Eye Exam: EOMI, PERRL Pupil Exam: NORMAL ACCOMODATION, PERRL - ENT Exam ENT Exam: Mucous Membranes Moist, Normal External Ear Exam, TM's Normal Bilaterally - Neck Exam Neck Exam: Full ROM, Normal Inspection - Respiratory Exam Respiratory Exam: Clear to Ausculation Bilateral, NORMAL BREATHING PATTERN. absent: Rales, Rhonchi, Wheezes - Cardiovascular Exam Cardiovascular Exam: REGULAR RHYTHM, RRR, +S1, +S2 - GI/Abdominal Exam GI & Abdominal Exam: Soft, Normal Bowel Sounds. absent: Distended, Tenderness - Extremities Exam Additional comments: contracted in lower extremities. scars from healed sacral decubiti prior from prior sacral decubiti ulders. - Neurological Exam Additional comments: CN II-XII mostly intact. AAO x 1-2. Appropriate verbal response much of the time with repeating of the answer often. - Skin Skin Exam: Intact, Normal Color Assessment and Plan - Assessment and Plan (Free Text) Assessment: 46 yo female with altered mental status worse than her usual at [facility]. The patient is awake but answers questions inappropriately. The patient was found to have a UTI with gram negative rods that likely led to septicemia. The patient is on ceftriaxone currently. The patient had a fever up 102.2 F on admission. Urine cultures with E. coli sensitive to Rocephin. Continuing with Rocephin for now. Complete up to 10 day course of therapy. If afebrile and patient is physically close to baseline , can consider d/c back to nursing facility with oral Keflex 500 mg TID to complete antibiotic therapy. Supportive care. Thank you for allowing me to participate in the care of the patient, we will follow with you.
[2016-08-24 07:28] VITALS: RESP 20
[2016-08-24] MEDS: Divalproex 125 mg EC Sprinkle Cap PO SCH ×2 (09:20→17:26)
[2016-08-24] MEDS: cefTRIAXone 1 gm 100 ML IVPB SCH (09:21)
--- NOTE | 2016-08-24 16:19 | CP.PCM.PN ---
Subjective - Date & Time of Evaluation Date of Evaluation: 08/24/16 Time of Evaluation: 14:15 - Subjective Subjective: Infectious Disease Follow Up: August 24, 2016 46 yo female sent from [facility] [place] for lethargy and being more somnolent. She became nonverbal with increased right sided weakness. The last time I saw the patient was September 2015. The patient could express herself to a limited degree and had a low voice. She was not a reliable historian. The conversations with her in the past were not always appropriate in that her response could be unrelated to the questions asked of her. The patient today is answering more appropriately. The patient did have a fever up to 102 F during this hospitalization. The patient had sacral decubiti which appears to be well healed at this time. E. coli in urine cultures. It is sensitive to Ceftriaxone. Supportive care. Multiple urine cultures positive for E. Coli. Afebrile for past 24 hours. Objective - Vital Signs/Intake and Output Vital Signs (last 24 hours): Temp Pulse Resp BP Pulse Ox 99.6 F 111 H 20 111/73 98 08/24/16 07:27 08/24/16 07:27 08/24/16 07:27 08/24/16 07:27 08/24/16 07:27 Intake and Output: 08/24/16 08/24/16 06:59 18:59 Intake Total 260 540 Output Total 700 400 Balance -440 140 - Medications Medications: Current Medications Baclofen (Lioresal) 5 mg PO TID [facility] Last Admin: 08/24/16 09:20 Dose: 5 mg Cephalexin Monohydrate (Keflex) 500 mg PO Q6 [facility] PRN Reason: Protocol Last Admin: 08/24/16 05:21 Dose: 500 mg Divalproex Sodium (Depakote Sprinkles) 125 mg PO BID [facility] Last Admin: 08/24/16 09:20 Dose: 125 mg Famotidine (Pepcid) 20 mg PO DAILY [facility] Last Admin: 08/24/16 09:20 Dose: 20 mg Ceftriaxone Sodium (Rocephin 1 Gram Ivpb) 100 mls @ 100 mls/hr IVPB DAILY [facility] PRN Reason: Protocol Last Admin: 08/24/16 09:21 Dose: 100 mls/hr Levetiracetam (Keppra) 500 mg PO TID [facility] Last Admin: 08/24/16 09:20 Dose: 500 mg Non-Formulary Medication (Interferon Beta-1a [Avonex]) 30 mcg IM QWK [facility] Sennosides (Senokot Tab) 8.6 mg PO HS PRN PRN Reason: Constipation - Labs Labs: PT 11.2 Seconds (9.9-11.8) 08/18/16 15:50 INR 1.04 (0.93-1.08) 08/18/16 15:50 APTT 24.0 Seconds (23.7-30.8) 08/18/16 15:50 - Constitutional Appears: Non-toxic, No Acute Distress, Chronically Ill - Head Exam Head Exam: ATRAUMATIC, NORMOCEPHALIC - Eye Exam Eye Exam: EOMI, PERRL Pupil Exam: NORMAL ACCOMODATION, PERRL - ENT Exam ENT Exam: Mucous Membranes Moist, Normal External Ear Exam, TM's Normal Bilaterally - Neck Exam Neck Exam: Full ROM, Normal Inspection - Respiratory Exam Respiratory Exam: Clear to Ausculation Bilateral, NORMAL BREATHING PATTERN. absent: Rales, Rhonchi, Wheezes - Cardiovascular Exam Cardiovascular Exam: REGULAR RHYTHM, RRR, +S1, +S2 - GI/Abdominal Exam GI & Abdominal Exam: Soft, Normal Bowel Sounds. absent: Distended, Tenderness - Extremities Exam Extremities Exam: Normal Inspection Additional comments: contracted in lower extremities. scars from healed sacral decubiti prior from prior sacral decubiti ulders. - Neurological Exam Neurological Exam: Alert, Awake, CN II-XII Intact, Oriented x3 Additional comments: CN II-XII mostly intact. AAO x 2. Appropriate verbal response much of the time with repeating of the answer often. - Psychiatric Exam Psychiatric exam: Normal Affect, Normal Mood - Skin Skin Exam: Intact, Normal Color Assessment and Plan - Assessment and Plan (Free Text) Assessment: 46 yo female with altered mental status worse than her usual at [facility]. The patient is awake but answers questions inappropriately. The patient was found to have a UTI with gram negative rods that likely led to septicemia. The patient is on ceftriaxone currently. The patient had a fever up 102.2 F on admission. Urine cultures with E. coli sensitive to Rocephin. Continuing with Rocephin for now. Complete up to 10 day course of therapy. If afebrile and patient is physically close to baseline , can consider d/c back to nursing facility with oral Keflex 500 mg TID to complete antibiotic therapy. Patient lost IV access last night and medications changed to oral Keflex. Supportive care. Thank you for allowing me to participate in the care of the patient, we will follow with you.
[2016-08-24 16:32] VITALS: BP 111/68; PULSE 106; TEMP 98; O2SAT 99
== END 2016-08-24 19:47 | DRG 584 ==
LOC: ED 14:43 → ERH 20:40 → 2RSO 22:08 → 5RNO 08-20 17:28 → 5RSO 08-20 17:31
PROVIDERS: ADMIT Internal Medicine; ATTEND Internal Medicine
DX: A41.9 Sepsis, unspecified organism (principal); N39.0 Urinary tract infection, site not specified; G92 Toxic encephalopathy; G35 Multiple sclerosis; B96.20 Unspecified Escherichia coli [E. coli] as the cause of diseases classified elsewhere; J44.9 Chronic obstructive pulmonary disease, unspecified; G40.909 Epilepsy, unspecified, not intractable, without status epilepticus; D64.9 Anemia, unspecified; J45.909 Unspecified asthma, uncomplicated; M24.50 Contracture, unspecified joint; K59.00 Constipation, unspecified; R47.01 Aphasia; Z86.73 Personal history of transient ischemic attack (TIA), and cerebral infarction without residual deficits

== ENCOUNTER 2018-06-05 19:16 | Inpatient (IN) | payer MEDICAID | END 2018-06-11 00:14 | disposition designated cancer center or children's hospital (05) | LOC: 5RNO 06-07 03:30 → ERH 06-06 01:57 → ED 19:16 → ERH 06-06 02:55 → 5RSO 06-06 04:02 ==